=== PATIENT | female | born 1990 | race Caucasian/White ===

== ENCOUNTER → 2020-01-19 | Outpatient (CLI) | payer OTHER | LOC: MC.RAD 09:15 | DX: R22.32 Localized swelling, mass and lump, left upper limb (principal) ==

== ENCOUNTER 2022-12-23 21:05 | Outpatient (CLI) | payer BC ==
[~2022-12-23] VITALS: Ht 157.5 cm; Wt 94.5 kg
--- NOTE | 2022-12-23 21:15 | NUR ---
PT TO UNIT AMBULATORY WITH HER MOTHER WITH CONCERNS OF DECREASED MOVEMENT. STATES SHE HASN'T FELT THE BABY MOVES SINCE YESTERDAY. STATES SHE FELT A SMALL AMOUNT OF FLUID LEAKING YESTERDAY ALSO BUT NOTHING SINCE THEN. PT ATTEMPTED TO DRINK JUICE AND LAY ON LEFT SIDE FOR 1 HOUR FOR KICK COUNTS AND DENIES FEELING ANY MOVEMENT. DENIES VAGINAL BLEEDING AND CTX. CHANGED INTO GOWN, ORIENTED TO ROOM, EFM X2 APPLIED, VS OBTAINED. AMNIOSWAB NEGATIVE, NO SVE PERFORMED PT DENIES CTX. FHT'S TRACING AT 135.
[2022-12-23 21:44] VITALS: BP 118/57; PULSE 96; TEMP 97.8
[2022-12-23] MEDS ORDERED: TUMS500 MG PO (21:52)
[2022-12-23] MEDS ORDERED: PRENATAL TABLET PO (21:52)
--- NOTE | 2022-12-23 22:00 | NUR ---
2143- REASSURING FHTs, PT STATES FEELING SMALL MOVEMENTS SINCE ARRIVAL TO THE UNIT. MONITORING DC'D. PT INSTRUCTED TO CHANGE INTO OWN CLOTHES WHILE DISCHARGE PAPERWORK IS PREPARED. 2199- DISCHARGE INSTRUCTIONS REVIEWED WITH PT, QUESTIONS ENCOURAGED AND ANSWERED. DISCUSSED HOW TO DO KICK COUNTS, UNDERSTANDING VERBALIZED. PT AND MOTHER OFF UNIT AMBULATORY FOR HOME.
== END 2022-12-23 22:00 | disposition home or self-care (01) ==
LOC: LDRO 21:05 → LDR 21:15 → LDRO 22:00
DX: O36.8130 Decreased fetal movements, third trimester, not applicable or unspecified (principal); Z3A.37 37 weeks gestation of pregnancy
CPT/HCPCS: OP

== ENCOUNTER → 2023-04-28 | Outpatient (CLI) | payer BC ==
[~2023-04-28] VITALS: Ht 157.5 cm; Wt 86.9 kg
[~2023-04-28] MED LIST: MOTRIN 800800 MG/TAB PO; NATURAL IRON65 MG PO; PHARMASSURE ZIN50 MG PO; PRENATAL TABLET PO; TUMS500 MG PO
[2023-04-28 14:01] VITALS: BP 118/81; PULSE 73; TEMP 98
[2023-04-28 14:50] VITALS: BP 131/84; PULSE 73
== END ==
LOC: COL.RAD 13:24
DX: C73 Malignant neoplasm of thyroid gland (principal)
CPT/HCPCS: 32106

== ENCOUNTER → 2024-03-03 | Outpatient (CLI) | payer BC | LOC: COL.RAD 09:14 | DX: K59.00 Constipation, unspecified (principal); Z97.5 Presence of (intrauterine) contraceptive device ==